=== PATIENT | male | born 1965 ===

== ENCOUNTER 2017-06-19 10:25 | Inpatient (IN) ==
[2017-06-19] MEDS ORDERED: INFLUENZA VIRUS VACCINE 0.5 ML SYRINGE IM ONE (13:49)
[2017-06-19] MEDS ORDERED: LACTULOSE 20 GM/30 ML UDCUP PO PRN (13:52)
[2017-06-19] MEDS ORDERED: GLUCAGON 1 MG VIAL IM PRN (13:52)
[2017-06-19] MEDS ORDERED: DEXTROSE 50% 25 GM/50 ML VIAL IV PRN (13:52)
[2017-06-19 14:34] LABS: Basophils # 0.1 10*3/uL (0.0-0.2); Basophils % 0.4 % (0.0-0.8); Eosinophils % 0.2 % (0.00-10.9); Hematocrit 32.1 VOL% (42.0-52.0); Hemoglobin 11.3 GM/DL (14.0-18.0); Immature Granulocytes % 0.7 %; Immature Granulocytes Absolute 0.09 #; Lymphocytes # 0.7 10*3/uL (1.4-4.0); Lymphocytes % 5.7 % (21.2-54.2); Mean Corpuscular HGB Conc 35.2 GM/DL (32-36); Mean Corpuscular Hemoglobin 31 PG (27-34); Mean Corpuscular Volume 87.2 FL (87-102); Mean Platelet Volume 10.4 FL (9.6-12.0); Monocytes % 8.5 % (1.7-12.7); Neutrophils # 10.2 10*3/uL (1.4-7.4); Neutrophils % 84.5 % (38.7-73.9); Platelet Count 213 T/CUMM (130-400); Red Blood Count 3.68 MC/CUMM (3.8-5.5); Red Cell Distribution Width 13.2 % (9.3-17.3)
[2017-06-19] MEDS: PANTOPRAZOLE 40 MG TABLET PO SCH (14:48)
[2017-06-19 14:56] LABS: Albumin 2.2 G/DL (3.4-5.0); Bilirubin,Total 0.5 MG/DL (0.2-1.0); Calcium 7.7 MG/DL (8.5-10.1); Potassium 3.7 MMOL/L (3.5-5.1); Total Protein 5.8 G/DL (6.4-8.3)
[2017-06-19 15:05] LABS: Magnesium 2.1 MG/DL (1.8-2.4); Thyroid Stimulating Hormone 2.02 uIU/ml (0.358-3.74)
[2017-06-19] MEDS ORDERED: ALBUTEROL/IPRATROPIUM 3 ML NEB RESP TX PRN (15:51)
[2017-06-19] MEDS ORDERED: hydroCHLOROthiazide 25 MG TABLET PO SCH (16:00)
[2017-06-19] MEDS ORDERED: LISINOPRIL 20 MG TABLET PO SCH (16:00)
[2017-06-19] MEDS ORDERED: hydrALAZINE 20 MG/1 ML VIAL IV PRN (16:18)
[2017-06-19] MEDS: ASPIRIN EC 81 MG TABLET PO SCH (17:22)
[2017-06-19] MEDS: LEVOFLOXACIN INJ 750 MG in PREMIX 1 EACH IV SCH (17:22)
[2017-06-19] MEDS: INSULIN LISPRO 100 UNIT/ML SUBCUT SCH ×2 (17:23→21:00)
[2017-06-19] MEDS: SODIUM CHLORIDE 0.9% 1,000 ML IV SCH (17:23)
[2017-06-19] MEDS: POLYETHYLENE GLYCOL POWDER 17 GM PACK PO SCH (20:58)
[2017-06-19] MEDS: ACETAMINOPHEN 325 MG TABLET PO PRN (21:29)
[2017-06-19] MEDS: ONDANSETRON 4 MG/2 ML VIAL IV PRN (22:13)
[2017-06-20 03:18] LABS: Basophils # 0.1 10*3/uL (0.0-0.2); Basophils % 0.6 % (0.0-0.8); Eosinophils % 0.2 % (0.00-10.9); Hemoglobin 10.4 GM/DL (14.0-18.0); Immature Granulocytes % 0.4 %; Immature Granulocytes Absolute 0.05 #; Lymphocytes # 1.1 10*3/uL (1.4-4.0); Lymphocytes % 9.6 % (21.2-54.2); Mean Corpuscular HGB Conc 33.5 GM/DL (32-36); Mean Corpuscular Hemoglobin 30 PG (27-34); Mean Corpuscular Volume 88.8 FL (87-102); Mean Platelet Volume 11.1 FL (9.6-12.0); Monocytes # 1.3 10*3/uL (0.11-0.8); Monocytes % 11.6 % (1.7-12.7); Neutrophils # 8.8 10*3/uL (1.4-7.4); Neutrophils % 77.6 % (38.7-73.9); Platelet Count 201 T/CUMM (130-400); Red Blood Count 3.49 MC/CUMM (3.8-5.5); Red Cell Distribution Width 13.3 % (9.3-17.3); White Blood Count 11.3 T/CUMM (4-12)
[2017-06-20 03:50] LABS: Bilirubin,Total 0.8 MG/DL (0.2-1.0); Calcium 7.6 MG/DL (8.5-10.1); Osmolality,Calculated 295.1 MOS/KG (273-304); Potassium 3.9 MMOL/L (3.5-5.1); Total Protein 5.3 G/DL (6.4-8.3)
[2017-06-20] MEDS: SODIUM CHLORIDE 0.9% 1,000 ML IV SCH ×2 (04:42→14:57)
[2017-06-20] MEDS: glipiZIDE 10 MG TABLET PO SCH (08:20)
[2017-06-20] MEDS: PANTOPRAZOLE 40 MG TABLET PO SCH (08:20)
[2017-06-20] MEDS: DOCUSATE SODIUM 100 MG CAPSULE PO PRN (08:20)
[2017-06-20] MEDS: cloNIDine 0.1 MG TABLET PO SCH ×3 (08:20→20:34)
[2017-06-20] MEDS: ASPIRIN EC 81 MG TABLET PO SCH (08:20)
[2017-06-20] MEDS: INSULIN LISPRO 100 UNIT/ML SUBCUT SCH ×4 (08:21→20:37)
[2017-06-20] MEDS: POLYETHYLENE GLYCOL POWDER 17 GM PACK PO SCH ×2 (08:21→20:35)
[2017-06-20] MEDS: LEVOFLOXACIN INJ 750 MG in PREMIX 1 EACH IV SCH (16:27)
[2017-06-21 06:45] LABS: Basophils % 0.4 % (0.0-0.8); Eosinophils # 0.1 10*3/uL (0.0-0.87); Eosinophils % 1.7 % (0.00-10.9); Hematocrit 30.7 VOL% (42.0-52.0); Hemoglobin 10.4 GM/DL (14.0-18.0); Immature Granulocytes % 0.2 %; Immature Granulocytes Absolute 0.02 #; Lymphocytes # 1.3 10*3/uL (1.4-4.0); Lymphocytes % 16.4 % (21.2-54.2); Mean Corpuscular HGB Conc 33.9 GM/DL (32-36); Mean Corpuscular Hemoglobin 30 PG (27-34); Mean Corpuscular Volume 88.2 FL (87-102); Mean Platelet Volume 10.7 FL (9.6-12.0); Monocytes # 1.2 10*3/uL (0.11-0.8); Monocytes % 14.3 % (1.7-12.7); Neutrophils # 5.4 10*3/uL (1.4-7.4); Platelet Count 199 T/CUMM (130-400); Red Blood Count 3.48 MC/CUMM (3.8-5.5); Red Cell Distribution Width 13.2 % (9.3-17.3); White Blood Count 8.1 T/CUMM (4-12)
[2017-06-21 07:17] LABS: Calcium 8.1 MG/DL (8.5-10.1); Osmolality,Calculated 291.5 MOS/KG (273-304); Potassium 4.1 MMOL/L (3.5-5.1)
[2017-06-21] MEDS ORDERED: TEMAZEPAM 15 MG CAPSULE PO PRN (08:42)
[2017-06-21] MEDS: glipiZIDE 10 MG TABLET PO SCH (09:27)
[2017-06-21] MEDS: POLYETHYLENE GLYCOL POWDER 17 GM PACK PO SCH ×2 (09:28→21:09)
[2017-06-21] MEDS: INSULIN LISPRO 100 UNIT/ML SUBCUT SCH ×4 (09:28→21:09)
[2017-06-21] MEDS: ASPIRIN EC 81 MG TABLET PO SCH (09:28)
[2017-06-21] MEDS: PANTOPRAZOLE 40 MG TABLET PO SCH (09:28)
[2017-06-21] MEDS: ALBUTEROL/IPRATROPIUM 3 ML NEB RESP TX SCH ×2 (13:10→19:43)
[2017-06-21] MEDS: LEVOFLOXACIN INJ 750 MG in PREMIX 1 EACH IV SCH (17:30)
[2017-06-21] MEDS: ONDANSETRON 4 MG/2 ML VIAL IV PRN (17:34)
[2017-06-22] MEDS: ALBUTEROL/IPRATROPIUM 3 ML NEB RESP TX SCH ×4 (01:07→19:48)
[2017-06-22 06:57] LABS: Basophils % 0.3 % (0.0-0.8); Eosinophils % 0.4 % (0.00-10.9); Hematocrit 29.4 VOL% (42.0-52.0); Immature Granulocytes % 0.4 %; Immature Granulocytes Absolute 0.03 #; Lymphocytes % 12.7 % (21.2-54.2); Mean Corpuscular Hemoglobin 30 PG (27-34); Mean Corpuscular Volume 87.8 FL (87-102); Monocytes # 0.7 10*3/uL (0.11-0.8); Monocytes % 9.8 % (1.7-12.7); Neutrophils # 5.8 10*3/uL (1.4-7.4); Neutrophils % 76.4 % (38.7-73.9); Platelet Count 237 T/CUMM (130-400); Red Blood Count 3.35 MC/CUMM (3.8-5.5); Red Cell Distribution Width 13.1 % (9.3-17.3); White Blood Count 7.6 T/CUMM (4-12)
[2017-06-22 07:21] LABS: Calcium 8.3 MG/DL (8.5-10.1); Osmolality,Calculated 294.5 MOS/KG (273-304); Potassium 4.3 MMOL/L (3.5-5.1)
[2017-06-22] MEDS: INSULIN LISPRO 100 UNIT/ML SUBCUT SCH ×4 (07:45→21:00)
[2017-06-22] MEDS: SODIUM CHLORIDE 0.9% 1,000 ML IV SCH (08:34)
[2017-06-22] MEDS: POLYETHYLENE GLYCOL POWDER 17 GM PACK PO SCH ×2 (09:52→21:00)
[2017-06-22] MEDS: ACETAMINOPHEN 325 MG TABLET PO PRN (09:52)
[2017-06-22] MEDS: ASPIRIN EC 81 MG TABLET PO SCH (09:53)
[2017-06-22] MEDS: PANTOPRAZOLE 40 MG TABLET PO SCH (09:54)
[2017-06-22] MEDS: glipiZIDE 10 MG TABLET PO SCH (09:54)
[2017-06-22] MEDS ORDERED: LEVOFLOXACIN INJ 500 MG in PREMIX 1 EACH IV SCH (16:00)
[2017-06-23] MEDS: SODIUM CHLORIDE 0.9% 1,000 ML IV SCH ×2 (00:09→12:47)
[2017-06-23] MEDS: ALBUTEROL/IPRATROPIUM 3 ML NEB RESP TX SCH ×2 (00:33→07:54)
[2017-06-23 07:33] LABS: Basophils % 0.4 % (0.0-0.8); Eosinophils # 0.1 10*3/uL (0.0-0.87); Eosinophils % 0.7 % (0.00-10.9); Hematocrit 28.5 VOL% (42.0-52.0); Hemoglobin 9.7 GM/DL (14.0-18.0); Immature Granulocytes % 0.4 %; Immature Granulocytes Absolute 0.03 #; Lymphocytes # 1.1 10*3/uL (1.4-4.0); Lymphocytes % 13.2 % (21.2-54.2); Mean Corpuscular Hemoglobin 30 PG (27-34); Mean Platelet Volume 10.9 FL (9.6-12.0); Monocytes % 12.3 % (1.7-12.7); Neutrophils # 5.9 10*3/uL (1.4-7.4); Platelet Count 241 T/CUMM (130-400); Red Blood Count 3.24 MC/CUMM (3.8-5.5); Red Cell Distribution Width 12.7 % (9.3-17.3)
[2017-06-23 08:10] LABS: Calcium 8.1 MG/DL (8.5-10.1); Osmolality,Calculated 291.7 MOS/KG (273-304); Potassium 4.4 MMOL/L (3.5-5.1)
[2017-06-23] MEDS: DOCUSATE SODIUM 100 MG CAPSULE PO PRN (09:11)
[2017-06-23] MEDS: glipiZIDE 10 MG TABLET PO SCH (09:11)
[2017-06-23] MEDS: POLYETHYLENE GLYCOL POWDER 17 GM PACK PO SCH (09:12)
[2017-06-23] MEDS: PANTOPRAZOLE 40 MG TABLET PO SCH (09:12)
[2017-06-23] MEDS: ASPIRIN EC 81 MG TABLET PO SCH (09:12)
[2017-06-23] MEDS: INSULIN LISPRO 100 UNIT/ML SUBCUT SCH ×2 (09:12→12:47)
[2017-06-23 11:30] VITALS: BP 160/90
== END 2017-06-23 14:32 | disposition home or self-care (01) | DRG 682 ==
LOC: SUATTDRO 13:12 → N.5E 13:12
PROVIDERS: ADMIT Hospitalist; ATTEND Hospitalist

== ENCOUNTER 2018-01-27 11:59 | Inpatient (IN) ==
[2018-01-27] MEDS ORDERED: ONDANSETRON 4 MG/2 ML VIAL IV PRN (14:47)
[2018-01-27 15:15] LABS: Basophils # 0.1 10*3/uL (0.0-0.2); Basophils % 0.6 % (0.0-0.8); Eosinophils # 0.2 10*3/uL (0.0-0.87); Eosinophils % 2.4 % (0.00-10.9); Hematocrit 25.9 VOL% (42.0-52.0); Hemoglobin 8.6 GM/DL (14.0-18.0); Immature Granulocytes % 0.7 %; Immature Granulocytes Absolute 0.07 #; Lymphocytes # 1.1 10*3/uL (1.4-4.0); Lymphocytes % 11.1 % (21.2-54.2); Mean Corpuscular HGB Conc 33.2 GM/DL (32-36); Mean Corpuscular Hemoglobin 30 PG (27-34); Mean Corpuscular Volume 90.6 FL (87-102); Mean Platelet Volume 10.6 FL (9.6-12.0); Monocytes # 0.7 10*3/uL (0.11-0.8); Monocytes % 6.8 % (1.7-12.7); Neutrophils # 7.4 10*3/uL (1.4-7.4); Neutrophils % 78.4 % (38.7-73.9); Platelet Count 244 T/CUMM (130-400); Red Blood Count 2.86 MC/CUMM (3.8-5.5); White Blood Count 9.5 T/CUMM (4-12)
[2018-01-27] MEDS ORDERED: DEXTROSE 50% 25 GM/50 ML VIAL IV PRN ×2 (15:33→15:41)
[2018-01-27] MEDS ORDERED: GLUCAGON 1 MG VIAL IM PRN ×2 (15:33→15:41)
[2018-01-27 15:45] LABS: Alanine Aminotransferase 26 U/L (16-61); Albumin 2.2 G/DL (3.4-5.0); Alkaline Phosphatase 128 U/L (45-117); Aspartate Amino Transferase 18 U/L (0-37); Bilirubin,Total < 0.39 MG/DL (0.2-1.0); Blood Urea Nitrogen 89 MG/DL (7-18); Calcium 7.9 MG/DL (8.5-10.1); Glucose 199 MG/DL (74-106); Osmolality,Calculated 315.1 MOS/KG (273-304); Potassium 4.6 MMOL/L (3.5-5.1); Sodium 142 MMOL/L (136-145); Total Protein 7.2 G/DL (6.4-8.3)
[2018-01-27 16:17] LABS: PT Patient Result 10.6 SECS; Partial Thromboplastin Time 34.3 SECS (0-40)
[2018-01-27 16:41] LABS: Apearance,Urine Slightly Hazy (Clear); Bacteria,Urine Occasional /HPF (Few); Bilirubin,Urine Negative (Negative); Blood, Urine Small mg/dL (Negative); Glucose,Urine (UA) >=500 mg/dL (Negative); Ketones,Urine Negative (Negative); Nitrite,Urine Negative (Negative); Protein,Urine >=500 MG/DL; RBC,Urine 3 /HPF (0-4); Urine Color Yellow (Yellow); Urine Specific Gravity 1.011 (1.001-1.035); Urine Urobilinogen < 2.0 EU/DL (0.2-1.0); WBC,Urine 4 /HPF (0-6)
[2018-01-27] MEDS: INSULIN REGULAR 100 UNIT/ML SUBCUT SCH ×2 (16:56→21:09)
[2018-01-27] MEDS ORDERED: INSULIN GLARGINE 100 UNIT/ML SUBCUT SCH (17:00)
[2018-01-27] MEDS: INSULIN LISPRO 100 UNIT/ML SUBCUT SCH (17:27)
[2018-01-27] MEDS: PANTOPRAZOLE 40 MG TABLET PO SCH (17:28)
[2018-01-27] MEDS ORDERED: hydrALAZINE 20 MG/1 ML VIAL IV ONE (17:33)
[2018-01-27 17:54] LABS: Hepatitis A Ab IgM Quant 0.24 Index; Hepatitis A Ab IgM Result Negative (Negative); Hepatitis B Core IgM Quant 0.17 Index; Hepatitis B Core IgM Result Negative (Negative); Hepatitis B Surface Ag Quant 0.12 Index; Hepatitis B Surface Ag Result Negative (Negative); Hepatitis C Virus Ab Quant 0.12 Index; Hepatitis C Virus Ab Result Negative (Negative)
[2018-01-27] MEDS ORDERED: cloNIDine 0.1 MG TABLET PO PRN (18:11)
[2018-01-27] MEDS: FUROSEMIDE 40 MG/4 ML VIAL IV SCH (18:33)
[2018-01-27] MEDS ORDERED: FUROSEMIDE 80 MG TABLET PO SCH (21:00)
[2018-01-27] MEDS: SENNA 8.6 MG TABLET PO SCH (21:09)
[2018-01-28] MEDS: FUROSEMIDE 40 MG/4 ML VIAL IV SCH ×4 (03:26→18:27)
[2018-01-28 06:54] LABS: Basophils % 0.4 % (0.0-0.8); Eosinophils # 0.2 10*3/uL (0.0-0.87); Eosinophils % 2.6 % (0.00-10.9); Hematocrit 24.8 VOL% (42.0-52.0); Hemoglobin 8.3 GM/DL (14.0-18.0); Immature Granulocytes % 0.7 %; Immature Granulocytes Absolute 0.07 #; Lymphocytes % 11.1 % (21.2-54.2); Mean Corpuscular HGB Conc 33.5 GM/DL (32-36); Mean Corpuscular Hemoglobin 30 PG (27-34); Mean Corpuscular Volume 89.9 FL (87-102); Monocytes # 0.7 10*3/uL (0.11-0.8); Monocytes % 7.5 % (1.7-12.7); Neutrophils # 7.3 10*3/uL (1.4-7.4); Neutrophils % 77.7 % (38.7-73.9); Platelet Count 264 T/CUMM (130-400); Red Blood Count 2.76 MC/CUMM (3.8-5.5); Red Cell Distribution Width 13.1 % (9.3-17.3); White Blood Count 9.4 T/CUMM (4-12)
[2018-01-28 07:15] LABS: Calcium 8.3 MG/DL (8.5-10.1)
[2018-01-28] MEDS: INSULIN REGULAR 100 UNIT/ML SUBCUT SCH ×4 (07:44→20:46)
[2018-01-28] MEDS: hydrALAZINE 20 MG/1 ML VIAL IV PRN (10:21)
[2018-01-28] MEDS: INSULIN LISPRO 100 UNIT/ML SUBCUT SCH ×2 (10:21→17:28)
[2018-01-28] MEDS: SENNA 8.6 MG TABLET PO SCH ×2 (10:29→20:45)
[2018-01-28] MEDS: LUBIPROSTONE 24 MCG CAPSULE PO SCH (10:29)
[2018-01-28] MEDS: PANTOPRAZOLE 40 MG TABLET PO SCH ×2 (10:29→17:29)
[2018-01-28] MEDS ORDERED: ceFAZolin 1,000 MG in SYRINGE 1 EACH IV ONE (10:45)
[2018-01-28] MEDS ORDERED: HEPARIN 5,000 UNIT/1 ML VIAL ONE (11:40)
[2018-01-28] MEDS ORDERED: LIDOCAINE 1%/EPI INJ 20 ML VIAL ONE (11:40)
[2018-01-28] MEDS ORDERED: BUPIVACAINE MPF 0.25% 30 ML VIAL ONE (11:41)
[2018-01-28] MEDS ORDERED: PROPOFOL 200 MG/20 ML VIAL IV ONE (13:00)
[2018-01-28] MEDS ORDERED: fentaNYL 100 MCG/2 ML VIAL ONE (13:00)
[2018-01-28] MEDS ORDERED: SODIUM CHLORIDE 0.9% 100 ML IV ONE (13:00)
[2018-01-28] MEDS ORDERED: MIDAZOLAM 2 MG/2 ML VIAL ONE (13:00)
[2018-01-28] MEDS ORDERED: HEPARIN 10,000 UNIT/10 ML VIAL IV PRN (14:06)
[2018-01-29] MEDS: FUROSEMIDE 40 MG/4 ML VIAL IV SCH (01:51)
[2018-01-29 03:49] LABS: Basophils % 0.4 % (0.0-0.8); Eosinophils # 0.2 10*3/uL (0.0-0.87); Eosinophils % 2.3 % (0.00-10.9); Hematocrit 24.9 VOL% (42.0-52.0); Hemoglobin 8.1 GM/DL (14.0-18.0); Immature Granulocytes % 0.5 %; Immature Granulocytes Absolute 0.05 #; Lymphocytes # 1.1 10*3/uL (1.4-4.0); Lymphocytes % 11.8 % (21.2-54.2); Mean Corpuscular HGB Conc 32.5 GM/DL (32-36); Mean Corpuscular Hemoglobin 30 PG (27-34); Mean Corpuscular Volume 91.9 FL (87-102); Mean Platelet Volume 10.8 FL (9.6-12.0); Monocytes # 0.7 10*3/uL (0.11-0.8); Monocytes % 7.9 % (1.7-12.7); Neutrophils # 7.3 10*3/uL (1.4-7.4); Neutrophils % 77.1 % (38.7-73.9); Platelet Count 238 T/CUMM (130-400); Red Blood Count 2.71 MC/CUMM (3.8-5.5); Red Cell Distribution Width 12.8 % (9.3-17.3); White Blood Count 9.4 T/CUMM (4-12)
[2018-01-29 03:58] LABS: Calcium 8.2 MG/DL (8.5-10.1); Osmolality,Calculated 301.5 MOS/KG (273-304); Potassium 4.6 MMOL/L (3.5-5.1)
[2018-01-29] MEDS: INSULIN LISPRO 100 UNIT/ML SUBCUT SCH (08:01)
[2018-01-29] MEDS: LUBIPROSTONE 24 MCG CAPSULE PO SCH (08:01)
[2018-01-29] MEDS: PANTOPRAZOLE 40 MG TABLET PO SCH (08:02)
[2018-01-29] MEDS: INSULIN REGULAR 100 UNIT/ML SUBCUT SCH ×2 (08:02→12:54)
[2018-01-29] MEDS: SENNA 8.6 MG TABLET PO SCH (08:02)
[2018-01-29] MEDS ORDERED: EPOETIN ALFA 10,000 UNIT/1 ML VIAL IV PRN (15:01)
[2018-01-29] MEDS ORDERED: HEPARIN 10,000 UNIT/10 ML VIAL IV PRN (15:01)
[2018-01-29] MEDS: CARVEDILOL 12.5 MG TABLET PO SCH ×2 (17:15→17:19)
[2018-01-29] MEDS: hydrALAZINE 20 MG/1 ML VIAL IV PRN (17:19)
[2018-01-29 17:31] VITALS: BP 183/93
== END 2018-01-29 17:45 | disposition home or self-care (01) | DRG 674 ==
LOC: SUATTDRO 13:42 → N.5E 13:42
PROVIDERS: ADMIT Internal Medicine; ATTEND Internal Medicine Nephrology

== ENCOUNTER 2021-04-14 18:39 | Inpatient (IN) ==
[2021-04-14] MEDS ORDERED: PIPERACILLIN/TAZOBACTAM 3,375 MG in SODIUM CHLORIDE 0.9% 100 ML IV STA (20:33)
[2021-04-14] MEDS ORDERED: DEXTROSE 50% 25 GM/50 ML VIAL IV PRN (23:58)
[2021-04-14] MEDS ORDERED: GLUCAGON 1 MG VIAL IM PRN (23:58)
[2021-04-15] MEDS ORDERED: ACETAMINOPHEN 325 MG TABLET PO PRN
[2021-04-15] MEDS ORDERED: ONDANSETRON 4 MG/2 ML VIAL IV PRN
[2021-04-15] MEDS ORDERED: MAGNESIUM SULF RIDER 4 GM/100 ML PREMIX IV PRN
[2021-04-15] MEDS ORDERED: POTASSIUM CHLORIDE 20 MEQ TABLET PO PRN
[2021-04-15] MEDS ORDERED: POTASSIUM CHLORIDE RIDER 10 MEQ/100 ML PREMIX IV PRN
[2021-04-15] MEDS ORDERED: MAGNESIUM SULF RIDER 2 GM/50 ML PREMIX IV PRN
[2021-04-15] MEDS ORDERED: SIMETHICONE CHEW 125 MG TABLET PO PRN
[2021-04-15] MEDS ORDERED: VANCOMYCIN INJ 750 MG in SODIUM CHLORIDE 0.9% 250 ML IV PRN (00:25)
[2021-04-15] MEDS: HEPARIN 5,000 UNIT/1 ML VIAL SUBCUT SCH ×2 (00:53→10:26)
[2021-04-15] MEDS ORDERED: VANCOMYCIN INJ 2,250 MG in SODIUM CHLORIDE 0.9% 500 ML IV ONE (01:00)
[2021-04-15] MEDS ORDERED: hydrALAZINE 20 MG/1 ML VIAL IV ONE (03:28)
[2021-04-15] MEDS ORDERED: INFLUENZA VIRUS VACCINE 0.5 ML SYRINGE IM ONE (03:37)
[2021-04-15] MEDS ORDERED: PNEUMOCOCCAL VACCINE (13 VALENT) 0.5 ML SYRINGE IM ONE (03:37)
[2021-04-15 05:57] LABS: Basophils # 0.1 10*3/uL (0.0-0.2); Basophils % 0.4 % (0.0-0.8); Eosinophils # 0.1 10*3/uL (0.0-0.87); Eosinophils % 0.4 % (0.00-10.9); Hematocrit 33.6 VOL% (42.0-52.0); Hemoglobin 11.1 GM/DL (14.0-18.0); Immature Granulocytes % 0.6 %; Lymphocytes % 6.3 % (21.2-54.2); Mean Corpuscular Volume 102.8 FL (87-102); Mean Platelet Volume 10.5 FL (9.6-12.0); Neutrophils % 81.3 % (38.7-73.9); Platelet Count 190 T/CUMM (130-400); Red Blood Count 3.27 MC/CUMM (3.8-5.5); White Blood Count 15.8 T/CUMM (4-12)
[2021-04-15 06:15] LABS: Albumin 2.8 G/DL (3.4-5.0); Bilirubin,Total 1.4 MG/DL (0.20-1.00); Calcium 8.9 MG/DL (8.5-10.1); Osmolality,Calculated 285.8 MOS/KG (273-304); Risk Ratio 5.91; Total Protein 8.5 G/DL (6.4-8.2); VLDL Cholesterol 35.4 MG/DL
[2021-04-15] MEDS ORDERED: SENNA 8.6 MG TABLET PO PRN (07:46)
[2021-04-15] MEDS: PANTOPRAZOLE 40 MG TABLET PO SCH (08:54)
[2021-04-15] MEDS: carvediloL 12.5 MG TABLET PO SCH ×2 (08:54→17:42)
[2021-04-15] MEDS: amLODIPine 5 MG TABLET PO SCH (08:54)
[2021-04-15] MEDS: DOCUSATE SODIUM 100 MG CAPSULE PO SCH ×2 (08:54→20:28)
[2021-04-15] MEDS: ASPIRIN EC 81 MG TABLET PO SCH (08:54)
[2021-04-15] MEDS: INSULIN REGULAR 100 UNIT/ML SUBCUT SCH ×4 (09:40→20:29)
[2021-04-15] MEDS ORDERED: MIDAZOLAM 2 MG/2 ML VIAL ONE (15:08)
[2021-04-15] MEDS ORDERED: fentaNYL 100 MCG/2 ML VIAL ONE (15:09)
[2021-04-15] MEDS ORDERED: LIDOCAINE 1% 20 ML VIAL ONE (15:35)
[2021-04-15] MEDS ORDERED: KETAMINE 500 MG/10 ML VIAL ONE (15:41)
[2021-04-15] MEDS ORDERED: ceFAZolin 1,000 MG VIAL ONE (15:45)
[2021-04-15] MEDS ORDERED: SODIUM CHLORIDE 0.9% 250 ML IV ONE (15:57)
[2021-04-15] MEDS ORDERED: ONDANSETRON 4 MG/2 ML VIAL IV ONE (16:27)
[2021-04-16 04:25] LABS: Basophils # 0.1 10*3/uL (0.0-0.2); Basophils % 0.5 % (0.0-0.8); Eosinophils # 0.1 10*3/uL (0.0-0.87); Eosinophils % 0.9 % (0.00-10.9); Hematocrit 30.6 VOL% (42.0-52.0); Immature Granulocytes % 0.9 %; Immature Granulocytes Absolute 0.14 #; Lymphocytes # 1.1 10*3/uL (1.4-4.0); Lymphocytes % 7.6 % (21.2-54.2); Mean Corpuscular HGB Conc 32.7 GM/DL (32-36); Mean Corpuscular Volume 103.4 FL (87-102); Mean Platelet Volume 10.4 FL (9.6-12.0); Neutrophils % 78.1 % (38.7-73.9); Platelet Count 200 T/CUMM (130-400); Red Blood Count 2.96 MC/CUMM (3.8-5.5); Red Cell Distribution Width 12.9 % (9.3-17.3)
[2021-04-16 04:57] LABS: Albumin 2.4 G/DL (3.4-5.0); Bilirubin,Total 0.6 MG/DL (0.20-1.00); Calcium 8.5 MG/DL (8.5-10.1); Osmolality,Calculated 291.8 MOS/KG (273-304); Potassium 4.4 MMOL/L (3.5-5.1); Total Protein 7.7 G/DL (6.4-8.2)
[2021-04-16] MEDS: INSULIN REGULAR 100 UNIT/ML SUBCUT SCH ×4 (08:36→21:57)
[2021-04-16] MEDS: PANTOPRAZOLE 40 MG TABLET PO SCH (09:31)
[2021-04-16] MEDS: carvediloL 12.5 MG TABLET PO SCH ×2 (09:31→17:43)
[2021-04-16] MEDS: amLODIPine 5 MG TABLET PO SCH (09:31)
[2021-04-16] MEDS: DOCUSATE SODIUM 100 MG CAPSULE PO SCH ×2 (09:31→21:56)
[2021-04-16] MEDS: ASPIRIN EC 81 MG TABLET PO SCH (09:31)
[2021-04-16 11:05] LABS: Hepatitis B Surface Ag Quant 0.13 Index; Hepatitis B Surface Ag Result Non-Reactive (NonReactive); Hepatitis C Virus Ab Quant 0.03 Index; Hepatitis C Virus Ab Result Non-Reactive (NonReactive)
[2021-04-16] MEDS: cefTRIAXone 1,000 MG in SODIUM CHLORIDE 0.9% 100 ML IV SCH (14:36)
[2021-04-16] MEDS: SODIUM HYPOCHLORITE 0.25% IRRIG 473 ML BOTTLE TOP SCH (15:28)
[2021-04-17 05:09] LABS: Basophils # 0.1 10*3/uL (0.0-0.2); Basophils % 0.5 % (0.0-0.8); Eosinophils # 0.2 10*3/uL (0.0-0.87); Eosinophils % 1.1 % (0.00-10.9); Hematocrit 29.5 VOL% (42.0-52.0); Hemoglobin 9.6 GM/DL (14.0-18.0); Immature Granulocytes % 0.8 %; Immature Granulocytes Absolute 0.14 #; Lymphocytes # 1.9 10*3/uL (1.4-4.0); Lymphocytes % 11.1 % (21.2-54.2); Mean Corpuscular HGB Conc 32.5 GM/DL (32-36); Mean Platelet Volume 10.2 FL (9.6-12.0); Monocytes % 13.6 % (1.7-12.7); Neutrophils % 72.9 % (38.7-73.9); Platelet Count 237 T/CUMM (130-400); Red Blood Count 2.81 MC/CUMM (3.8-5.5); White Blood Count 17.1 T/CUMM (4-12)
[2021-04-17 05:37] LABS: Albumin 2.3 G/DL (3.4-5.0); Bilirubin,Total 0.5 MG/DL (0.20-1.00); Calcium 8.8 MG/DL (8.5-10.1); Osmolality,Calculated 284.1 MOS/KG (273-304); Potassium 4.7 MMOL/L (3.5-5.1); Total Protein 7.7 G/DL (6.4-8.2)
[2021-04-17] MEDS: INSULIN REGULAR 100 UNIT/ML SUBCUT SCH ×4 (07:52→22:14)
[2021-04-17] MEDS: amLODIPine 5 MG TABLET PO SCH (09:14)
[2021-04-17] MEDS: PANTOPRAZOLE 40 MG TABLET PO SCH (09:14)
[2021-04-17] MEDS: cefTRIAXone 1,000 MG in SODIUM CHLORIDE 0.9% 100 ML IV SCH (09:15)
[2021-04-17] MEDS: carvediloL 12.5 MG TABLET PO SCH ×2 (09:15→16:36)
[2021-04-17] MEDS: DOCUSATE SODIUM 100 MG CAPSULE PO SCH ×2 (09:15→21:56)
[2021-04-17] MEDS: ASPIRIN EC 81 MG TABLET PO SCH (09:15)
[2021-04-17] MEDS: SODIUM HYPOCHLORITE 0.25% IRRIG 473 ML BOTTLE TOP SCH (09:16)
[2021-04-18 05:13] LABS: Basophils # 0.1 10*3/uL (0.0-0.2); Basophils % 0.5 % (0.0-0.8); Eosinophils # 0.4 10*3/uL (0.0-0.87); Eosinophils % 3.1 % (0.00-10.9); Immature Granulocytes % 0.9 %; Immature Granulocytes Absolute 0.13 #; Lymphocytes # 1.6 10*3/uL (1.4-4.0); Lymphocytes % 11.2 % (21.2-54.2); Mean Corpuscular HGB Conc 32.1 GM/DL (32-36); Mean Corpuscular Volume 102.6 FL (87-102); Mean Platelet Volume 10.3 FL (9.6-12.0); Monocytes % 9.8 % (1.7-12.7); Neutrophils % 74.5 % (38.7-73.9); Platelet Count 242 T/CUMM (130-400); Red Blood Count 2.73 MC/CUMM (3.8-5.5); Red Cell Distribution Width 12.9 % (9.3-17.3); White Blood Count 14.3 T/CUMM (4-12)
[2021-04-18 05:38] LABS: Albumin 2.3 G/DL (3.4-5.0); Bilirubin,Total 1.2 MG/DL (0.20-1.00); Calcium 8.6 MG/DL (8.5-10.1); Osmolality,Calculated 293.2 MOS/KG (273-304); Potassium 5.6 MMOL/L (3.5-5.1); Total Protein 7.7 G/DL (6.4-8.2)
[2021-04-18] MEDS ORDERED: MIDAZOLAM 2 MG/2 ML VIAL ONE (07:50)
[2021-04-18] MEDS ORDERED: SEVOFLURANE 1 UNIT/15 MINUTE INH ONE (07:50)
[2021-04-18] MEDS ORDERED: LIDOCAINE 2% 5 ML VIAL ONE (07:50)
[2021-04-18] MEDS ORDERED: fentaNYL 100 MCG/2 ML VIAL ONE (07:50)
[2021-04-18] MEDS ORDERED: ONDANSETRON 4 MG/2 ML VIAL ONE (07:50)
[2021-04-18] MEDS ORDERED: DEXAMETHASONE 4 MG/1 ML VIAL ONE ×2 (07:50→09:05)
[2021-04-18] MEDS ORDERED: propofoL 200 MG/20 ML VIAL IV ONE ×2 (07:50→09:07)
[2021-04-18] MEDS ORDERED: LIDOCAINE 1% 20 ML VIAL ONE (08:31)
[2021-04-18] MEDS ORDERED: BUPIVACAINE MPF 0.25% 30 ML VIAL ONE (08:31)
[2021-04-18] MEDS ORDERED: DEXMEDETOMIDINE 200 MCG/2 ML VIAL ONE (08:49)
[2021-04-18] MEDS ORDERED: SODIUM CHLORIDE 0.9% 500 ML IV SCH (09:00)
[2021-04-18] MEDS: PANTOPRAZOLE 40 MG TABLET PO SCH (10:11)
[2021-04-18] MEDS: ASPIRIN EC 81 MG TABLET PO SCH (10:11)
[2021-04-18] MEDS: amLODIPine 5 MG TABLET PO SCH (10:11)
[2021-04-18] MEDS: INSULIN REGULAR 100 UNIT/ML SUBCUT SCH ×4 (10:11→21:16)
[2021-04-18] MEDS: carvediloL 12.5 MG TABLET PO SCH ×2 (10:11→18:12)
[2021-04-18] MEDS: DOCUSATE SODIUM 100 MG CAPSULE PO SCH ×2 (10:12→21:15)
[2021-04-18] MEDS: SODIUM HYPOCHLORITE 0.25% IRRIG 473 ML BOTTLE TOP SCH (10:12)
[2021-04-19 06:41] LABS: Basophils % 0.2 % (0.0-0.8); Eosinophils % 0.2 % (0.00-10.9); Hematocrit 29.5 VOL% (42.0-52.0); Hemoglobin 10.1 GM/DL (14.0-18.0); Immature Granulocytes % 1.1 %; Immature Granulocytes Absolute 0.19 #; Lymphocytes % 5.6 % (21.2-54.2); Mean Corpuscular HGB Conc 34.2 GM/DL (32-36); Mean Corpuscular Volume 98.7 FL (87-102); Mean Platelet Volume 10.3 FL (9.6-12.0); Monocytes % 6.6 % (1.7-12.7); Neutrophils % 86.3 % (38.7-73.9); Platelet Count 273 T/CUMM (130-400); Red Blood Count 2.99 MC/CUMM (3.8-5.5); Red Cell Distribution Width 12.5 % (9.3-17.3); White Blood Count 17.8 T/CUMM (4-12)
[2021-04-19 07:10] LABS: Albumin 2.2 G/DL (3.4-5.0); Bilirubin,Total 1.1 MG/DL (0.20-1.00); Calcium 8.8 MG/DL (8.5-10.1); Osmolality,Calculated 287.5 MOS/KG (273-304); Potassium 4.3 MMOL/L (3.5-5.1); Total Protein 7.7 G/DL (6.4-8.2)
[2021-04-19] MEDS: PANTOPRAZOLE 40 MG TABLET PO SCH (08:01)
[2021-04-19] MEDS: carvediloL 12.5 MG TABLET PO SCH ×2 (08:01→17:12)
[2021-04-19] MEDS: ASPIRIN EC 81 MG TABLET PO SCH (08:01)
[2021-04-19] MEDS: amLODIPine 5 MG TABLET PO SCH (08:01)
[2021-04-19] MEDS: DOCUSATE SODIUM 100 MG CAPSULE PO SCH ×2 (08:01→21:44)
[2021-04-19] MEDS: SODIUM HYPOCHLORITE 0.25% IRRIG 473 ML BOTTLE TOP SCH (08:01)
[2021-04-19] MEDS: INSULIN REGULAR 100 UNIT/ML SUBCUT SCH ×4 (08:36→21:44)
[2021-04-19] MEDS ORDERED: EPOETIN ALFA-EPBX 2,000 UNIT/ML VIAL IV PRN (16:04)
[2021-04-20 05:35] LABS: Basophils # 0.1 10*3/uL (0.0-0.2); Basophils % 0.4 % (0.0-0.8); Eosinophils # 0.4 10*3/uL (0.0-0.87); Eosinophils % 2.6 % (0.00-10.9); Hematocrit 28.4 VOL% (42.0-52.0); Hemoglobin 9.8 GM/DL (14.0-18.0); Immature Granulocytes % 0.9 %; Immature Granulocytes Absolute 0.12 #; Lymphocytes # 1.4 10*3/uL (1.4-4.0); Lymphocytes % 9.8 % (21.2-54.2); Mean Corpuscular HGB Conc 34.5 GM/DL (32-36); Mean Platelet Volume 10.3 FL (9.6-12.0); Monocytes % 9.1 % (1.7-12.7); Neutrophils % 77.2 % (38.7-73.9); Platelet Count 286 T/CUMM (130-400); Red Blood Count 2.84 MC/CUMM (3.8-5.5); Red Cell Distribution Width 12.5 % (9.3-17.3)
[2021-04-20 06:05] LABS: Albumin 2.2 G/DL (3.4-5.0); Bilirubin,Total 1.2 MG/DL (0.20-1.00); Calcium 8.5 MG/DL (8.5-10.1); Osmolality,Calculated 288.8 MOS/KG (273-304); Total Protein 7.4 G/DL (6.4-8.2)
[2021-04-20] MEDS: DOCUSATE SODIUM 100 MG CAPSULE PO SCH (08:57)
[2021-04-20] MEDS: carvediloL 12.5 MG TABLET PO SCH (08:57)
[2021-04-20] MEDS: amLODIPine 5 MG TABLET PO SCH (08:57)
[2021-04-20] MEDS: PANTOPRAZOLE 40 MG TABLET PO SCH (08:58)
[2021-04-20] MEDS: ASPIRIN EC 81 MG TABLET PO SCH (08:58)
[2021-04-20] MEDS: SODIUM HYPOCHLORITE 0.25% IRRIG 473 ML BOTTLE TOP SCH (08:58)
[2021-04-20] MEDS: INSULIN REGULAR 100 UNIT/ML SUBCUT SCH ×2 (09:13→12:14)
[2021-04-20 12:33] VITALS: BP 164/64
== END 2021-04-20 13:12 | disposition home health service (06) | DRG 264 ==
LOC: N.ED 18:39 → N.EDINP 23:28 → N.TELEN 04-15 03:26
PROVIDERS: ADMIT Internal Medicine; ATTEND Internal Medicine